=== PATIENT | female | born 1960 | race Caucasian/White ===

== ENCOUNTER 2021-06-17 09:47 | Emergency (ER) | payer BC ==
[2021-06-17 10:00] VITALS: BP 138/86; PULSE 103; RESP 22; TEMP 99.1
--- NOTE | 2021-06-17 10:16 | ED ---
URI HPI - General Chief Complaint: Upper Respiratory Infection Stated Complaint: Covid+ Time Seen by Provider: 06/17/21 10:04 Source: patient, RN notes reviewed Mode of arrival: ambulatory Limitations: no limitations - History of Present Illness Initial Comments: Patient is 61-year-old female presenting to ED for upper respiratory symptoms. Patient states that for the past 2 weeks she's been feeling under the weather with generalized weakness, congestion and cough. Patient denies any nausea and vomiting at this time with normal oral intake to both solids and liquids. Patient reports no changes in bowel movements or urination. Patient reports history of asthma has mild shortness of breath at this time. Patient states she was swabbed for covid yesterday but has not gotten results back, this being the main reason she came today. Patient reports not receiving COVID-19 vaccine. - Related Data Previous Rx's Medication Instructions Recorded Dexamethasone [Decadron] 6 mg PO DAILY #4 tablet 06/17/21 Allergies Allergy/AdvReac Type Severity Reaction Status Date / Time No Known Allergies Allergy Verified 06/17/21 10:00 Review of Systems ROS Statement: Those systems with pertinent positive or pertinent negative responses have been documented in the HPI. ROS Other: All systems not noted in ROS Statement are negative. Past Medical History Past Medical History: Asthma History of Any Multi-Drug Resistant Organisms: None Reported Past Surgical History: Section, Orthopedic Surgery Past Psychological History: No Psychological Hx Reported Smoking Status: Never smoker Past Alcohol Use History: Occasional Past Drug Use History: None Reported General Exam Limitations: no limitations General appearance: alert, in no apparent distress Respiratory exam: Present: wheezes (mild, mild SOB) Cardiovascular Exam: Present: normal rhythm, tachycardia, normal heart sounds Neurological exam: Present: alert, oriented X3 Skin exam: Present: warm, dry, intact, normal color. Absent: rash Course Vital Signs 06/17/21 09:57 Temperature 99.1 F Pulse Rate 103 H Respiratory 22 Rate Blood Pressure 138/86 O2 Sat by Pulse 93 L Oximetry Medical Decision Making - Medical Decision Making patient has positive or COVID-19. X-ray shows mild COVID-19 pneumonia. Patient symptoms have been greater than 10 days she is out of the window for monoclonal antibodies will be discharged in stable condition. - Lab Data Lab Results 06/17/21 Range/Units 10:11 Coronavirus (PCR) Detected A (Not Detectd) Disposition Clinical Impression: COVID-19 Disposition: HOME SELF-CARE Condition: Stable Instructions (If sedation given, give patient instructions): Coronavirus Disease 2019 (COVID-19) Additional Instructions: Please return to the Emergency Department if symptoms worsen or any other concerns. Prescriptions: Dexamethasone [Decadron] 6 mg PO DAILY #4 tablet Is patient prescribed a controlled substance at d/c from ED?: No Referrals: Kasandra Martinez DO [Primary Care Provider] - 1-2 days Time of Disposition: 11:30
--- NOTE | 2021-06-17 10:50 | XR ---
EXAMINATION TYPE: XR chest 2V DATE OF EXAM: 06/17/2021 COMPARISON: NONE HISTORY: Cough TECHNIQUE: Frontal and lateral views of the chest are obtained. FINDINGS: Bilateral patchy airspace disease is present predominantly in a peripheral distribution. N o pneumothorax or pleural effusion. Cardiac mediastinal silhouette is within normal limits. IMPRESSION: Correlate for pneumonia, consider covid infection
== END 2021-06-17 12:01 | disposition home or self-care (01) ==
LOC: EC 09:47
DX: U07.1 COVID-19 (principal); J45.909 Unspecified asthma, uncomplicated
CPT/HCPCS: 71046; 87635; 99285